=== PATIENT | female | born 1960 | race Caucasian/White ===

== ENCOUNTER 2017-10-10 11:12 | Emergency (ER) | payer BC, OTHER ==
[~2017-10-10] VITALS: Ht 170.2 cm; Wt 108.0 kg
[~2017-10-10 11:12] MED LIST: CA C1TAB26 PO; CRAN1TAB PO; D ME PO; DESV50TA PO; DM H1CAP4 PO; ERGO400C PO; FAMC500T2 PO; FLC100T1 PO; FLUO40CA PO; HYDR-3583 PO; HYDR-3714 PO; LISI10TA2 PO; LORA-794 PO; LORA10TA7 PO; MELA1TAB11 PO; MOXI3DRO OU; MULT-608 PO; OMEP20CA12 PO; OMEP20CA6 PO; SULF-222 PO; VITA10007 PO; VITA150T PO
--- NOTE | 2017-10-10 11:38 | ED Trauma-Multisystem ---
General Chief Complaint: Trauma-Non Activation Stated Complaint: FELL/HEAD INJ AT WORK Nursing Triage Note: PT AMB TO ROOM #6 W/O DIFFICULTY. A&OX4. CO N/V AND HEADACHE. PT REPOTRS SHE TRIPPED OVER A DOORWAY AT WORK YESTERDAY, FELL ON HER LT SIDE, AND HIT HER HEAD AND ELBOW. DENIES LOC. PT REPORTS SINCE THE FALL SHE HAS BEEN UNABLE TO KEEP FOOD OR FLUIDS DOWN W/O EPISODES OF EMESIS. PT REPORTS SHE TRIED TO GO TO WORK THIS MORNING AT [facility] AND THEY SENT PT HERE. History of Present Illness Date Seen by Provider: Oct 10, 2017 Time Seen by Provider: 11:39 Initial Comments Patient is a 57-year-old female who presents to the emergency room with complaints of head injury, neck pain, nausea, vomiting, and headache from a fall happened yesterday. She reports while she was at work she was carrying a 5 gallon bucket of laundry detergent and tripped over a door jam falling onto her left side and hitting her head on a concrete floor. She denies loss of consciousness, denies visual changes, does report stiffness and soreness to her left side there is no bone tenderness, full range of motion, and minimal pain. Location Injury Occurred: [facility] rehabilitation Occurred: Yesterday Pain/Injury Location: Head, Neck Method of Injury: Fall (from standing) Loss of Consciousness: No Loss of Consciousness Associated Symptoms (Fall): Headache, Nausea/Vomiting; No Shortness of Air, No Slurred Speech, No Trouble Walking, No Vision Changes Allergies and Home Medications Allergies Coded Allergies: fentanyl (Unverified Allergy, Unknown, 09/13/10) Home Medications Ca Cmb No.1/Vit D3/B-6/Fa/B12 1 Each Tablet, 1,000 MG PO HS, (Reported) D-Methorphan/Acetamin/Doxylamn 237 Ml Liquid, 2 TAB PO HS, (Reported) Dm Hb/Pe/Acetaminophen/Chlorph 1 Each Capsule, 2 TAB PO Q4 -6H PRN for COLD/FLU , (Reported) Famciclovir 500 Mg Tablet, 500 MG PO TID, (Reported) 7 DAY THERAPY 2 DOSES TAKEN Fluoxetine Hcl 40 Mg Capsule, 40 MG PO HS, (Reported) Hydrocodone Bit/Acetaminophen 1 Each Tablet, 0.5 TAB PO Q4 -6H PRN for PAIN, ( Reported) Lisinopril 10 Mg Tablet, 10 MG PO BID, (Reported) Loratadine 10 Mg Tablet, 10 MG PO HS PRN for ALLERGIES, (Reported) Lorazepam 0.5 Mg Tablet, 0.5 MG PO HS PRN for SLEEP, (Reported) Moxifloxacin Hcl 3 Ml Drops, 1 DROP OU BID, (Reported) 7 DAY THERAPY 2 DOSES TAKEN Multivitamins 1 Tab Tablet, 2 TAB PO HS, (Reported) Omeprazole 20 Mg Capsule.dr, 20 MG PO HS, (Reported) Ondansetron 4 Mg Tab.rapdis, 4 MG SL Q4H PRN for NAUSEA/VOMITING-1ST LINE Prescribed by: HEATHER CARRANZA on 10/10/17 1259 Tramadol HCl 50 Mg Tablet, 50 MG PO Q6H Prescribed by: HEATHER CARRANZA on 10/10/17 1259 Trimethoprim/Sulfamethoxazole 1 Ea Tablet, 1 TAB PO BID, (Reported) 7 DAY THERAPY 2 DOSES TAKEN Vitamin B Complex & Vit C No.4 150 Mg Tablet, 150 MG PO HS, (Reported) Patient Home Medication List Home Medication List Reviewed: Yes Review of Systems Constitutional: see HPI; No chills, No diaphoresis, No dizziness, No fever Eyes: See HPI; Denies Blindness, Denies Blurred Vision, Denies Drainage, Denies Photophobia, Denies Previous Injury Ears: Denies Dizziness Nose: Serosanguinous Discharge Gastrointestinal: nausea, vomiting Musculoskeletal: see HPI, neck pain, other (left-sided head pain) Skin: see HPI, other (superficial abrasion to the left knee) All Other Systems Reviewed Negative Unless Noted: Yes Past Domuwmh-Txalju-Zdiofa Hx Past Med/Social Hx: Reviewed Nursing Past Med/Soc Hx Patient Social History Recent Foreign Travel: No Contact w/Someone Who Travel: No Recent Infectious Disease Expo: No Past Medical History Reproductive Disorders: Yes Recent Skin Changes Family Medical History Reviewed Nursing Family Hx Patient reports no known family medical history. Physical Exam Vital Signs Vital Signs - First Documented Height, Weight, BMI Height: 5'7.00" Weight: 238lbs. oz. 107.072422gz; BMI Method:Stated General Appearance: No Apparent Distress, WD/WN Head: Tenderness (tenderness to the left parietal area. No hematoma, no bleeding); No Active Bleeding, No Marti's Sign, No Contusions Eyes: Bilateral Eye Normal Inspection, Bilateral Eye PERRL, Bilateral Eye EOMI Neck: Full Range of Motion, Normal Inspection, Supple, Tender Midline Cardiovascular: Regular Rate, Rhythm, No Edema, No Gallop, No JVD, No Murmur, Normal Peripheral Pulses Respiratory: Chest Non Tender, Lungs Clear, Normal Breath Sounds, No Accessory Muscle Use, No Respiratory Distress Back: Normal Inspection, No CVA Tenderness, No Vertebral Tenderness Neurologic/Psychiatric: Alert, Oriented x3, Normal Mood/Affect Skin: Normal Color, Warm/Dry Angie Coma Score Best Eye Response ([place]): (4) Open Spontaneously Best Verbal Response (Angie): (5) Oriented Best Motor Response (Angie): (6) Obeys Commands Angie Total: 15 Progress/Results/Core Measures Results/Orders My Orders Orders - HEATHER CARRANZA Ct Head/Cervical Spine Wo (10/10/17 11:34) Ondansetron Oral Dissolve Tab (Zofran (10/10/17 11:45) Tramadol Tablet (Ultram Tablet) (10/10/17 13:00) Medications Given in ED Vital Signs/I&O 10/10/17 10/10/17 10/10/17 11:17 11:17 13:13 Temp 96.8 96.8 96.8 Pulse 68 68 58 Resp 15 15 15 B/P (MAP) 139/75 (96) 139/75 (96) 136/75 (96) Pulse Ox 97 97 99 O2 Delivery Room Air Room Air Room Air Blood Pressure Mean: 96 Progress Progress Note : Time: 12:37 Progress Note Patient's nausea is completely gone at this time. She reports that her pain is a 6 out of 10, tramadol was ordered. And evaluated this patient. She agrees with plan to discharge, close follow-up with her primary care physician, and return precautions. She was given a prescription for tramadol and Zofran. Diagnostic Imaging Diagonstic Imaging: CT Plain Films/CT/US/NM/MRI: c-spine, head Comments NAME: SHIELA ALBERTO Rebecca DEAN REC#: [id number] PT STATUS: REG ER : 1960 PHYSICIAN: HEATHER CARRANZA ADMIT DATE: 10/10/17/ER Draft Date of Exam:10/10/17 CT HEAD/CERVICAL SPINE WO CLINICAL INDICATION: Patient fell 24 hours ago striking left side of head. Patient has headache and neck pain. EXAM: Head CT without IV contrast. Axial CT scan of the cervical spine with sagittal and coronal reformations. COMPARISON: None. FINDINGS: Head CT: There is no evidence of acute cerebral infarct, intracranial hemorrhage, or gross mass effect. The brain parenchymal volume appears appropriate for patient's age. There is normal gifford-white matter distinction. There is no significant midline shift or herniation. There is no evidence of hydrocephalus. The basal cisterns are unremarkable. The skull, extracranial soft tissue, and orbits are unremarkable. There is a small mucus retention cyst in the left maxillary sinus. Temporal bones show no significant abnormality. Cervical spine: Cervical spine has normal alignment with no acute fracture or dislocation. There is cervical spine degenerative disease with suggestion of diffuse disc bulge at the C5-C6 and C6-C7 levels. There is ifyg-lp-drjwvjqb bilateral neural foramen narrowing at the C6-C7 level and zruw-bv-fszbzqnd left C5-C6 neural foramen narrowing. There is no significant bony central canal narrowing. There are degenerative spurs involving the atlanto-odontoid interval anteriorly. Neck soft tissue structures show no significant abnormality. Visualized upper lung epstein are clear. IMPRESSION: 1: There is no evidence of acute intracranial process. 2: There is multilevel cervical spine degenerative disease with no acute fracture or dislocation. Dictated on workstation # [id number] Dict: 10/10/17 1237 Trans: 10/10/17 1249 [id number] Interpreted by: TWAN CAGE MD Electronically signed by: Reviewed: Reviewed by Me Departure Impression Primary Impression: Head injury Disposition: 01 HOME, SELF-CARE Condition: Stable/Unchanged Departure-Patient Inst. Decision time for Depature: 12:57 Referrals: KRISTEL HUFFMAN MD (PCP) Primary Care Physician ANNETTA EMANUEL (Family) Primary Care Physician Patient Instructions: Concussion, Adult (DC), Minor Head Injury (DC) Add. Discharge Instructions: Take medication as directed. Follow-up with your primary care physician within 5 days for recheck. Call today for an appointment time. Return back to the emergency room for any worsening pain, nausea, vomiting, headaches, dizziness, or any other concerns as needed. All discharge instructions reviewed with patient and/or family. Voiced understanding. Scripts Ondansetron (Zofran Odt) 4 Mg Tab.rapdis 4 MG SL Q4H PRN for NAUSEA/VOMITING-1ST LINE, #20 TAB Prov: HEATHER CARRANZA 10/10/17 Tramadol HCl (Tramadol HCl) 50 Mg Tablet 50 MG PO Q6H, #10 TAB Prov: HEATHER CARRANZA 10/10/17 Work/School Note: Work Release Form Date Seen in the Emergency Department: Oct 10, 2017 Return to Work: Oct 12, 2017 Restrictions: No Restrictions HEATHER CARRANZA Oct 10, 2017 11:38
[2017-10-10] MEDS ORDERED: ONDANSETRON 4 MG (ZOFRAN) ORAL DISSOLVE TAB SL ONE (11:45)
--- NOTE | 2017-10-10 12:50 | Diagnostic Imaging Report ---
CLINICAL INDICATION: Patient fell 24 hours ago striking left side of head. Patient has headache and neck pain. EXAM: Head CT without IV contrast. Axial CT scan of the cervical spine with sagittal and coronal reformations. COMPARISON: None. FINDINGS: Head CT: There is no evidence of acute cerebral infarct, intracranial hemorrhage, or gross mass effect. The brain parenchymal volume appears appropriate for patient's age. There is normal gifford-white matter distinction. There is no significant midline shift or herniation. There is no evidence of hydrocephalus. The basal cisterns are unremarkable. The skull, extracranial soft tissue, and orbits are unremarkable. There is a small mucus retention cyst in the left maxillary sinus. Temporal bones show no significant abnormality. Cervical spine: Cervical spine has normal alignment with no acute fracture or dislocation. There is cervical spine degenerative disease with suggestion of diffuse disc bulge at the C5-C6 and C6-C7 levels. There is gtfv-vk-iudumdhs bilateral neural foramen narrowing at the C6-C7 level and fuxq-bq-omzwbhoq left C5-C6 neural foramen narrowing. There is no significant bony central canal narrowing. There are degenerative spurs involving the atlanto-odontoid interval anteriorly. Neck soft tissue structures show no significant abnormality. Visualized upper lung epstein are clear. IMPRESSION: 1: There is no evidence of acute intracranial process. 2: There is multilevel cervical spine degenerative disease with no acute fracture or dislocation. Dictated by: Dictated on workstation # [id number]
[2017-10-10] MEDS ORDERED: TRAM50TA2 PO (12:59)
[2017-10-10] MEDS ORDERED: ONDA4TAB8 SL (12:59)
[2017-10-10 13:13] VITALS: BP 136/75
== END 2017-10-10 13:13 | disposition home or self-care (01) ==
LOC: EDUNIT# 11:12 → ER 11:15
DX: S09.90XA Unspecified injury of head, initial encounter (principal); R40.2142 Coma scale, eyes open, spontaneous, at arrival to emergency department; R40.2252 Coma scale, best verbal response, oriented, at arrival to emergency department; R40.2362 Coma scale, best motor response, obeys commands, at arrival to emergency department; Z88.8 Allergy status to other drugs, medicaments and biological substances; W01.198A Fall on same level from slipping, tripping and stumbling with subsequent striking against other object, initial encounter; Y92.59 Other trade areas as the place of occurrence of the external cause; Y99.0 Civilian activity done for income or pay
CPT/HCPCS: 70450; 72125

== ENCOUNTER → 2018-02-06 | Outpatient (REF) ==
[~2018-02-06] MED LIST changes: +ONDA4TAB8 SL; +TRAM50TA2 PO
--- NOTE | 2018-02-06 09:54 | Diagnostic Imaging Report ---
EXAMINATION: Right toes INDICATION: Injury Three views were obtained. There are no prior studies available for comparison. There is a nondisplaced fracture involving the base of the distal phalanx of the great toe. There is no other fracture or acute bony abnormality appreciated. There does appear to be soft tissue edema about the fractured distal phalanx. There is no radiopaque foreign body identified, however. There is degenerative disease involving the midfoot. IMPRESSION: 1. There is a nondisplaced fracture of the base of the distal phalanx of the great toe. There is no acute bony abnormality noted otherwise. 2. There is no sign of a radiopaque foreign body. Dictated by: Dictated on workstation # [id number]
== END | disposition home or self-care (01) ==
LOC: OCC 09:22
PROVIDERS: ATTEND Family Medicine
CPT/HCPCS: 73660

== ENCOUNTER 2018-09-29 10:27 | Emergency (ER) | payer SELFPAY ==
[~2018-09-29] VITALS: Ht 170.2 cm; Wt 77.1 kg
[2018-09-29] MEDS ORDERED: LIDOCAINE 1% INJ 20 ML 20 ML VIAL ONE (10:37)
--- NOTE | 2018-09-29 10:47 | ED Lower Extremity ---
General Chief Complaint: Laceration Stated Complaint: LACERATION ON TOP OF FOOT Source: patient Exam Limitations: no limitations History of Present Illness Date Seen by Provider: Sep 29, 2018 Time Seen by Provider: 10:42 Initial Comments Glass fell off a shelf she was cleaning landing on her right foot and cutting it. Complains of 2 painful similar laceration to the dorsum of right foot. Unable to dorsiflex great toe Allergies and Home Medications Allergies Coded Allergies: fentanyl (Unverified Allergy, Unknown, 09/13/10) Home Medications Ca Cmb No.1/Vit D3/B-6/Fa/B12 1 Each Tablet, 1,000 MG PO HS, (Reported) Cephalexin 500 Mg Capsule, 500 MG PO TID Prescribed by: YENI ESPINOZA on 09/29/18 1102 D-Methorphan/Acetamin/Doxylamn 237 Ml Liquid, 2 TAB PO HS, (Reported) Dm Hb/Pe/Acetaminophen/Chlorph 1 Each Capsule, 2 TAB PO Q4 -6H PRN for COLD/FLU , (Reported) Famciclovir 500 Mg Tablet, 500 MG PO TID, (Reported) 7 DAY THERAPY 2 DOSES TAKEN Fluoxetine Hcl 40 Mg Capsule, 40 MG PO HS, (Reported) Hydrocodone Bit/Acetaminophen 1 Each Tablet, 0.5 TAB PO Q4 -6H PRN for PAIN, (Reported) Lisinopril 10 Mg Tablet, 10 MG PO BID, (Reported) Loratadine 10 Mg Tablet, 10 MG PO HS PRN for ALLERGIES, (Reported) Lorazepam 0.5 Mg Tablet, 0.5 MG PO HS PRN for SLEEP, (Reported) Moxifloxacin Hcl 3 Ml Drops, 1 DROP OU BID, (Reported) 7 DAY THERAPY 2 DOSES TAKEN Multivitamins 1 Tab Tablet, 2 TAB PO HS, (Reported) Omeprazole 20 Mg Capsule.dr, 20 MG PO HS, (Reported) Ondansetron 4 Mg Tab.rapdis, 4 MG SL Q4H PRN for NAUSEA/VOMITING-1ST LINE Prescribed by: HEATHER CARRANZA on 10/10/17 1259 Tramadol HCl 50 Mg Tablet, 50 MG PO Q6H Prescribed by: HEATHER CARRANZA on 10/10/17 1259 Trimethoprim/Sulfamethoxazole 1 Ea Tablet, 1 TAB PO BID, (Reported) 7 DAY THERAPY 2 DOSES TAKEN Vitamin B Complex & Vit C No.4 150 Mg Tablet, 150 MG PO HS, (Reported) Patient Home Medication List Home Medication List Reviewed: Yes Review of Systems Constitutional: no symptoms reported Respiratory: no symptoms reported Cardiovascular: no symptoms reported Skin: see HPI Past Wgjwtpz-Birkhh-Yssxac Hx Patient Social History Alcohol Beverage of Choice: Beer Type Used: Cigarettes Recent Hopitalizations: Yes (,apr,may, july, august 24) Past Medical History Surgeries: Yes (Gastric bypass ,, gallbladder, exploratory uterine, hysterectomy ) Respiratory: No Cardiac: Yes Hypertension Neurological: No Reproductive Disorders: Yes Gastrointestinal: Yes (Gastric bypass sx in 2004 and 2006, perforation of stomach 2006) Endocrine: No Cataract Cancer: No Psychosocial: Yes Anxiety Integumentary: No Recent Skin Changes Blood Disorders: No Family Medical History Patient reports no known family medical history. Physical Exam Vital Signs Vital Signs - First Documented 09/29/18 10:32 Temp 99.0 Pulse 75 Resp 18 B/P (MAP) 184/88 (120) Pulse Ox 95 Capillary Refill : Height, Weight, BMI Height: 5'7.00" Weight: 238lbs. oz. 107.180005jd; BMI Method:Stated General Appearance: WD/WN, no apparent distress Neck: supple Cardiovascular: regular rate, rhythm Respiratory: lungs clear Feet: bilateral foot other (right plantar flex, unable to dorsiflex) Neurologic/Psychiatric: alert, normal mood/affect Skin: normal color, warm/dry, other (lymphocytes and a laceration to the dorsum of right foot) Procedures/Interventions Wound Location: Lower Extremities Other Wound Location Dorsum right foot Wound Length (cm): 2.5 Wound's Depth, Shape: sub Q Wound Explored: clean Betadine Prep?: Yes Anesthesia: 1% Lidocaine Volume Anesthetic (ccs): 3 Suture: Ethlion Suture Size: 5-0 Number of Sutures: 4 Sterile Dressing Applied?: Yes Progress/Results/Core Measures Results/Orders My Orders Orders - YENI ESPINOZA MD Lidocaine 1% Inj 20 Ml (Xylocaine 1% Inj (09/29/18 10:37) Lidocaine 1% Inj 20 Ml (Xylocaine 1% Inj (09/29/18 11:00) Medications Given in ED Current Medications Medications Dose Ordered Sig/Inderjit Route Start Time Stop Time Status Last Admin Dose Admin Lidocaine HCl 20 ml ONCE ONCE INJ 09/29/18 11:00 09/29/18 11:01 DC 09/29/18 10:49 20 ML Vital Signs/I&O 09/29/18 09/29/18 10:32 11:18 Temp 99.0 Pulse 75 65 Resp 18 16 B/P (MAP) 184/88 (120) 163/91 (115) Pulse Ox 95 98 Progress Progress Note : Time: 10:59 Progress Note Wound was sutured. I will put on antibiotics since there is a tendon injury. I encouraged her to follow with orthopedist this week for repeat of her extensor tendon of the great toe. She says she'll think about it Has not taken blood pressure medicine yet today. Departure Impression Primary Impression: Laceration of right foot Disposition: HOME, SELF-CARE Condition: Stable Departure-Patient Inst. Decision time for Depature: 11:00 Referrals: KRISTEL HUFFMAN MD (PCP) Primary Care Physician ANNETTA EMANUEL (Family) Primary Care Physician Patient Instructions: Tendon Laceration (DC) Add. Discharge Instructions: See orthopedist of your choice as soon as possible to repair the tendon laceration to your great toe. All discharge instructions reviewed with patient and/or family. Voiced understanding. Scripts Cephalexin (Keflex) 500 Mg Capsule 500 MG PO TID, #15 CAP Prov: YENI ESPINOZA MD 09/29/18 YENI ESPINOZA MD Sep 29, 2018 10:47
[2018-09-29] MEDS ORDERED: LIDOCAINE 1% INJ 20 ML 20 ML VIAL INJ ONE (11:00)
[2018-09-29] MEDS ORDERED: CEPH-507 PO (11:02)
[2018-09-29 11:18] VITALS: BP 163/91
== END 2018-09-29 11:24 | disposition home or self-care (01) ==
LOC: EDUNIT# 10:27 → ER FS 10:29
DX: S91.311A Laceration without foreign body, right foot, initial encounter (principal); I10 Essential (primary) hypertension; F41.9 Anxiety disorder, unspecified; Z98.84 Bariatric surgery status; Z90.710 Acquired absence of both cervix and uterus; W26.8XXA Contact with other sharp object(s), not elsewhere classified, initial encounter
CPT/HCPCS: 12013